=== PATIENT | male | born 1985 | race African-American/Black ===

== ENCOUNTER 2017-03-30 22:53 | Emergency (ER) | payer MEDICAID, OTHER ==
[~2017-03-30] VITALS: Ht 175.3 cm; Wt 72.0 kg
[2017-03-31] MEDS ORDERED: KETOROLAC 60MG/2ML VIAL IM ONE
[2017-03-31 00:15] LABS: BASOPHILS % 0.5 % (0.0-2.0); EOSINOPHILS % 1.3 % (0.0-5.0); HEMATOCRIT. 37.8 % (42.0-52.0); HEMOGLOBIN. 12.6 g/dL (14.0-18.0); LYMPHOCYTES % 7.2 % (20.0-50.0); MEAN CORPUSCULAR HEMOGLOBIN 28.8 pg (28.0-32.0); MEAN CORPUSCULAR VOLUME 86.1 fL (80.0-94.0); MEAN PLATELET VOLUME 8.3 fl (7.4-10.4); PLATELET 149 x1000/uL (130-400); RED BLOOD CELL COUNT 4.39 mill/uL (4.7-6.1); RED CELL DISTRIBUTION WIDTH 12.6 % (11.6-14.6)
[2017-03-31 00:22] LABS: CHLORIDE 102 mEq/L (98-107)
[2017-03-31 00:32] LABS: CARBON DIOXIDE 25 mEq/L (21-32); ETHANOL BLOOD < 10 mg/dL
[2017-03-31 03:25] VITALS: BP 103/69
== END 2017-03-31 04:49 | disposition home or self-care (01) ==
LOC: ER 23:16
DX: M25.562 Pain in left knee (principal); M79.1 Myalgia; M60.9 Myositis, unspecified; M54.9 Dorsalgia, unspecified; F17.200 Nicotine dependence, unspecified, uncomplicated; F12.10 Cannabis abuse, uncomplicated
CPT/HCPCS: 36415; 72100; 73560; 80053; 85025; 96372; 99285; G0482; J1885; Z7610

== ENCOUNTER 2019-04-04 11:17 | Emergency (ER) | payer OTHER ==
[~2019-04-04] VITALS: Ht 177.8 cm; Wt 68.0 kg
[2019-04-04] MEDS ORDERED: HYDROCODONE/ACETAMINOPHEN 5/325MG TABLET PO ONE (12:30)
[2019-04-04] MEDS ORDERED: ONDANSETRON 4MG ODT PO ONE (12:30)
[2019-04-04] MEDS ORDERED: SODIUM CHLORIDE 0.9% 1,000 ML IV ONE (12:45)
[2019-04-04 13:52] LABS: BASOPHILS % 0.8 % (0.0-2.0); EOSINOPHILS % 0.6 % (0.0-5.0); HEMATOCRIT. 40.5 % (42.0-52.0); HEMOGLOBIN. 13.3 g/dL (14.0-18.0); LYMPHOCYTES % 15.9 % (20.0-50.0); MEAN CORPUSCULAR HEMOGLOBIN 29.6 pg (28.0-32.0); MEAN PLATELET VOLUME 8.5 fl (7.4-10.4); MONOCYTES % 9.1 % (2.0-8.0); NEUTROPHILS % 73.6 % (40.0-76.0); PLATELET 162 x1000/uL (130-400); RED CELL DISTRIBUTION WIDTH 13.5 % (11.6-14.6)
[2019-04-04 13:57] LABS: CHLORIDE 107 mEq/L (98-107)
[2019-04-04 13:59] LABS: PROTHROMBIN TIME 10.7 sec (9.6-11.0)
[2019-04-04 15:48] VITALS: BP 135/70
== END 2019-04-04 15:52 | disposition home or self-care (01) ==
LOC: ER 11:17 → CANBEDREQ 15:35 → ER 15:52
DX: S62.394A Other fracture of fourth metacarpal bone, right hand, initial encounter for closed fracture (principal); S62.396A Other fracture of fifth metacarpal bone, right hand, initial encounter for closed fracture; F12.10 Cannabis abuse, uncomplicated; F17.210 Nicotine dependence, cigarettes, uncomplicated; W22.01XA Walked into wall, initial encounter; Y93.89 Activity, other specified; Y92.018 Other place in single-family (private) house as the place of occurrence of the external cause
CPT/HCPCS: 29125; 36415; 73130; 80048; 85025; 85610; 93005; 99284; J7030; Q0162

== ENCOUNTER 2019-05-13 15:06 | Emergency (ER) | payer OTHER ==
[~2019-05-13] VITALS: Ht 177.8 cm; Wt 74.0 kg
[2019-05-13 17:43] VITALS: BP 124/72
== END 2019-05-13 17:49 | disposition home or self-care (01) ==
LOC: ER 15:06
DX: M21.941 Unspecified acquired deformity of hand, right hand (principal); M79.641 Pain in right hand; F12.10 Cannabis abuse, uncomplicated; F17.210 Nicotine dependence, cigarettes, uncomplicated
CPT/HCPCS: 29125; 99283

== ENCOUNTER 2019-09-06 10:56 | Emergency (ER) | payer OTHER ==
[~2019-09-06] VITALS: Ht 177.8 cm; Wt 69.0 kg
[2019-09-06] MEDS: IBUPROFEN 600MG TABLET PO STA (13:29)
[2019-09-06 14:23] VITALS: BP 114/62
== END 2019-09-06 14:24 | disposition home or self-care (01) ==
LOC: ER 10:56
DX: M25.512 Pain in left shoulder (principal); M25.552 Pain in left hip; V23.4XXA Motorcycle driver injured in collision with car, pick-up truck or van in traffic accident, initial encounter; Y93.89 Activity, other specified; Y92.89 Other specified places as the place of occurrence of the external cause; Y99.8 Other external cause status; F12.10 Cannabis abuse, uncomplicated
CPT/HCPCS: 71045; 72100; 73030; 99283

== ENCOUNTER 2021-03-29 16:13 | Emergency (ER) | payer OTHER ==
[~2021-03-29] VITALS: Ht 172.7 cm; Wt 67.0 kg
[2021-03-29] MEDS ORDERED: HALOPERIDOL LACTATE 5MG/ML VIAL IM STA (17:29)
[2021-03-29] MEDS ORDERED: DIPHENHYDRAMINE 50MG/ML VIAL IM ONE (17:30)
[2021-03-29] MEDS ORDERED: LORAZEPAM 2MG/ML CPJ IM ONE (17:30)
[2021-03-29] MEDS ORDERED: SODIUM CHLORIDE 0.9% 1,000 ML IV ONE ×2 (17:30→20:45)
[2021-03-29 19:07] LABS: HEMATOCRIT. 40.6 % (42.0-52.0); HEMOGLOBIN. 13.5 g/dL (14.0-18.0); MEAN CORPUSCULAR HEMOGLOBIN 29.8 pg (28.0-32.0); MEAN CORPUSCULAR VOLUME 90.1 fL (80.0-94.0); MEAN PLATELET VOLUME 8.3 fl (7.4-10.4); PLATELET 200 x1000/uL (130-400); RED BLOOD CELL COUNT 4.51 mill/uL (4.7-6.1); RED CELL DISTRIBUTION WIDTH 13.5 % (11.6-14.6)
[2021-03-29 19:10] LABS: CHLORIDE 107 mEq/L (98-107)
[2021-03-29 19:15] LABS: ETHANOL BLOOD < 10 mg/dL
[2021-03-29 19:25] LABS: PLATELET ESTIMATE NORMAL
[2021-03-29 19:31] LABS: CREATINE KINASE 1421 IU/L (39-308)
[2021-03-29] MEDS ORDERED: SODIUM CHLORIDE 0.9% 100 ML IV ONE (20:45)
[2021-03-29] MEDS ORDERED: KETOROLAC 30MG/ML VIAL IV ONE (20:45)
[2021-03-30 00:20] LABS: CLARITY URINE CLEAR (CLEAR); COLOR URINE YELLOW (YELLOW); KETONES URINE 1+ (NEGATIVE); LEUKOCYTE ESTERASE URINE NEGATIVE (NEGATIVE); NITRITE URINE NEGATIVE (NEGATIVE); OCCULT BLOOD URINE TRACE (NEGATIVE); PROTEIN URINE 1+ (NEGATIVE); SPECIFIC GRAVITY URINE 1.023 (1.005-1.030); UROBILINOGEN URINE 0.2 E.U./dL (0.2-1.0)
[2021-03-30 00:42] LABS: *AMPHETAMINES SCREEN URINE PRESUMTIVE POSITIVE (NEGATIVE); *BARBITURATES SCREEN URINE NEGATIVE (NEGATIVE); *COCAINE SCREEN URINE NEGATIVE (NEGATIVE); METHADONE URINE SCREEN NEGATIVE (NEGATIVE); PHENCYCLIDINE URINE SCREEN NEGATIVE (NEGATIVE)
[2021-03-30 00:43] LABS: *BENZODIAZEPINES SCREEN URINE NEGATIVE (NEGATIVE); CANNABINOID URINE SCREEN PRESUMTIVE POSITIVE (NEGATIVE); OPIATES URINE SCREEN NEGATIVE (NEGATIVE)
[2021-03-30 09:27] VITALS: BP 123/72
== END 2021-03-30 10:08 | disposition home or self-care (01) ==
LOC: ER 16:13
DX: M62.82 Rhabdomyolysis (principal); F12.10 Cannabis abuse, uncomplicated; Z20.822 Contact with and (suspected) exposure to COVID-19; S00.81XA Abrasion of other part of head, initial encounter; X58.XXXA Exposure to other specified factors, initial encounter; Y93.89 Activity, other specified; Y92.89 Other specified places as the place of occurrence of the external cause; Y99.8 Other external cause status
CPT/HCPCS: 36415; 70450; 80053; 80307; 80320; 80329; 82550; 84443; 85025; 87426; 96361; 96372; 96374; 99285; J1200; J1630; J1885; J2060; J7030; J7050; Z7610; G0480

== ENCOUNTER 2021-09-02 08:55 | Emergency (ER) | payer OTHER ==
[~2021-09-02] VITALS: Ht 180.3 cm; Wt 71.0 kg
[2021-09-02 10:31] VITALS: BP 143/68
== END 2021-09-02 10:34 ==
LOC: ER 08:55
DX: Z02.89 Encounter for other administrative examinations (principal); I49.8 Other specified cardiac arrhythmias; F20.9 Schizophrenia, unspecified; F32.A Depression, unspecified; F43.10 Post-traumatic stress disorder, unspecified; F41.9 Anxiety disorder, unspecified
CPT/HCPCS: 93005; 99283